=== PATIENT | male | born 1970 | race Two or more races ===

== ENCOUNTER 2019-11-15 09:58 | Inpatient (IN) | payer MEDICAID ==
[~2019-11-15] VITALS: Ht 157.5 cm; Wt 70.3 kg
--- NOTE | 2019-11-15 10:05 | NUR ---
LEFT SIDED CP X 3 DAYS. PATIENT A/OX4. BREATHING EVEN AND UNLABORED, NO SOB NOTED. NEEDS ATTENDED. ATTACHED TO THE LOCOMOTIVE ENGINEER DIESEL.
[2019-11-15 10:33] LABS: BASOPHILS % (AUTO) 0.4 % (0.0-2.0); EOSINOPHILS % (AUTO) 0.1 % (0.0-6.0); HEMATOCRIT 49 % (39-51); HEMOGLOBIN 16.6 g/dL (13.5-17.5); LYMPHOCYTES # (AUTO) 1.2 /CMM (0.8-4.8); LYMPHOCYTES % (AUTO) 11.6 % (20.0-44.0); MEAN CORPUSCULAR HGB CONC 34 g/dl (31.0-36.0); MEAN CORPUSCULAR VOLUME 97 fL (80-96); MONOCYTES # (AUTO) 1.1 /CMM (0.1-1.30); NEUTROPHILS # (AUTO) 8.4 /CMM (1.8-8.9); NEUTROPHILS % (AUTO) 77.9 % (43.0-81.0); PLATELET COUNT (AUTO) 205 /CMM (150-450); RED BLOOD CELL COUNT(AUTO) 5.07 MIL/uL (4.5-6.0); WHITE BLOOD COUNT (AUTO) 10.8 K/uL (4.3-11.0)
[2019-11-15 10:43] LABS: CARBON DIOXIDE 25 mmol/L (21-32); CHLORIDE 106 mmol/L (98-107); GLUCOSE 115 mg/dL (74-106); SODIUM SERUM 142 mmol/L (136-145); UREA NITROGEN, BLOOD 20 mg/dL (7-18)
[2019-11-15 10:56] LABS: B-TYPE NATRIURETIC PEPTIDE 40 PG/ML (0-125)
--- NOTE | 2019-11-15 11:45 | NUR ---
CALLED FOR TELE BED & TURNED IN MOVE SHEET TO ADMITTING.
--- NOTE | 2019-11-15 12:18 | NUR ---
115-2 TELE. PRIMARY NURSE AWARE.
[2019-11-15] MEDS ORDERED: ACETAMINOPHEN 325 MG TABLET PO PRN (12:30)
[2019-11-15] MEDS ORDERED: Z GUARD REMEDY 2 OZ OINT TP PRN (12:30)
[2019-11-15] MEDS ORDERED: MAGNESIUM HYDROXIDE 30 ML UDC PO PRN (12:30)
[2019-11-15] MEDS ORDERED: MAG HYDROX/AL HYDROX/SIMETH 30 ML UDC PO PRN (12:30)
[2019-11-15] MEDS ORDERED: HYDROCODONE/APAP 5/325MG 1 EACH TABLET PO PRN (12:30)
[2019-11-15] MEDS ORDERED: ONDANSETRON HCL/PF 4 MG/2 ML VIAL IVP PRN (12:30)
--- NOTE | 2019-11-15 13:08 | NUR ---
REPORT GIVEN TO FANG VAUGHN.
--- NOTE | 2019-11-15 13:26 | NUR ---
PATIENT TRANSFERRED TO ROOM 115-2 VIA ACLS PROTOCOL. PATIENT IN STABLE CONDITION, AMBULATORY WITH STEADY GAIT. NO DISTRESS NOTED. ENDORSED TO FANG VAUGHN.
[2019-11-15 13:45] VITALS: BP 118/72
[2019-11-15] MEDS: IV NS 0.9% 1,000 ML IV PRN (14:29)
--- NOTE | 2019-11-15 15:00 | NUR ---
RN NOTES RECEIVED HANDOFF REPORT FROM FANG FOR CONTINUITY OF CARE.
--- NOTE | 2019-11-15 15:00 | NUR ---
rn note at 1345 pt came from er vs, sr 86 on electronic device monitor, sweating co chest pain and left arm 5/10, a little nausea. iv in left ac 18 g, intact, norco offered, but later refused. no aspirin given in ER followed up with MD regarding aspirin and will administer today. call light within reach. care endorsed to RODERICK Swift for KATHY.
[2019-11-15] MEDS: ASPIRIN 325 MG TABLET PO SCH (15:12)
[2019-11-15 16:00] VITALS: BP 120/76
[2019-11-15] MEDS: METOPROLOL TARTRATE 50 MG TABLET PO SCH (17:38)
--- NOTE | 2019-11-15 19:02 | NUR ---
RN CLOSING NOTES PATIENT IS RESTING COMFORTABLY IN BED, NO S/SX OF RESP DISTRESS OR SOB. PT STATES CHEST PAIN HAS IMPROVED. CHEST RISES AND FALLS EVENLY. DENIES ANY DISCOMFORT AT THIS TIME . PT NEEDS HAVE BEEN MET, VITAL SIGNS ARE STABLE, NO ACUTE CHANGES OCCURRED THROUGHOUT THE SHIFT. RESEARCH COMPUTING SPECIALIST IS AT BEDSIDE. SAFETY MEASURES HAVE BEEN IMPLEMENTED, CALL LIGHT IS WITHIN REACH, BED IS IN LOWEST AND LOCKED POSITION, SIDE RAILS UP X2, WILL ENDORSE TO NIGHTSHIFT RN FOR CONTINUITY OF CARE.
[2019-11-15 20:00] VITALS: BP 103/63
--- NOTE | 2019-11-15 20:00 | NUR ---
AIRCRAFT TIME CLERK NOTES RECEIVED PATIENT AWAKE IN BED WITH NO DISTRESS NOTED. CALL LIGHT WITHIN REACH. NO C/O PAIN OR DISCOMFORT. PERIPHERAL LINE INTACT AND PATENT. ENCOURAGED USE OF CALL LIGHT FOR ASSISTANCE AND VERBALIZED GOOD UNDERSTANDING. BED IN LOW LOCK SETTING WITH BED ALARM ON AND FUNCTIONING PROPERLY. ROOM FREE OF CLUTTER AND BELONGINGS KEPT NEAR BEDSIDE. WILL CONTINUE TO MONITOR.
[2019-11-16] MEDS: IV NS 0.9% 1,000 ML IV PRN (03:54)
[2019-11-16 04:00] VITALS: BP 100/60
[2019-11-16] MEDS: METOPROLOL TARTRATE 50 MG TABLET PO SCH ×4 (05:28→17:30)
--- NOTE | 2019-11-16 06:31 | NUR ---
LEASE OPERATOR NOTES PATIENT ASLEEP IN BED WITH NO DISTRESS NOTED. CALL LIGHT WITHIN REACH. PERIPHERAL LINE INTACT AND PATENT. BED IN LOW LOCK SETTING WITH BED ALARM ON AND FUNCTIONING PROPERLY. ROOM FREE OF CLUTTER AND BELONGINGS KEPT NEAR BEDSIDE. WILL ENDORSE TO ONCOMING SHIFT.
[2019-11-16 07:19] LABS: BASOPHILS % (AUTO) 0.5 % (0.0-2.0); EOSINOPHILS % (AUTO) 1.5 % (0.0-6.0); HEMATOCRIT 42 % (39-51); HEMOGLOBIN 14.3 g/dL (13.5-17.5); LYMPHOCYTES # (AUTO) 2.5 /CMM (0.8-4.8); LYMPHOCYTES % (AUTO) 37.4 % (20.0-44.0); MEAN CORPUSCULAR HGB CONC 34 g/dl (31.0-36.0); MEAN CORPUSCULAR VOLUME 97 fL (80-96); MONOCYTES # (AUTO) 0.8 /CMM (0.1-1.30); MONOCYTES % (AUTO) 12.9 % (2.0-12.0); NEUTROPHILS # (AUTO) 3.1 /CMM (1.8-8.9); NEUTROPHILS % (AUTO) 47.7 % (43.0-81.0); PLATELET COUNT (AUTO) 174 /CMM (150-450); RED BLOOD CELL COUNT(AUTO) 4.31 MIL/uL (4.5-6.0); WHITE BLOOD COUNT (AUTO) 6.6 K/uL (4.3-11.0)
[2019-11-16 07:33] LABS: CALCIUM, SERUM 8.2 mg/dL (8.5-10.1); CREATININE 0.7 mg/dL (0.6-1.3); PHOSPHORUS 2.8 mg/dL (2.5-4.9); POTASSIUM 3.8 mmol/L (3.5-5.1)
[2019-11-16 08:00] VITALS: BP 100/49
[2019-11-16] MEDS: ASPIRIN 325 MG TABLET PO SCH (08:52)
[2019-11-16] MEDS ORDERED: ASPIRIN 325 MG TABLET PO SCH (09:00)
[2019-11-16 12:00] VITALS: BP 104/65
[2019-11-16] MEDS ORDERED: NITROGLYCERIN 4.9 GM SPRAY SL PRN (13:30)
[2019-11-16] MEDS ORDERED: METOPROLOL TARTRATE INJ 5 MG/5 ML AMPUL IVP PRN (13:30)
[2019-11-16] MEDS ORDERED: IOHEXOL-350 100 ML VIAL IV ONE (13:37)
[2019-11-16] MEDS ORDERED: IV NS 0.9% 250 ML IV ONE (13:37)
[2019-11-16 16:00] VITALS: BP_SYST 129; BP_DIAS 70; BP_DIAS 76
[2019-11-16 17:30] VITALS: BP 129/76
--- NOTE | 2019-11-16 18:30 | NUR ---
RN CLOSING NOTE CTA WAS NEGATIVE. MD NOTIFIED. PATIENT DISCHARGED HOME. PAPERWORK COMPLETED AND SIGNED,. ID AND IV SITE REMOVED. PATIENT STATES HE HAS HIS OWN TRANSPORTATION.
== END 2019-11-16 18:30 | disposition home or self-care (01) | DRG 723 ==
LOC: ER 10:04 → TELE1 12:25 → MEDSG1 11-16 12:14
PROVIDERS: ADMIT Internal Medicine; ATTEND Internal Medicine
DX: B34.9 Viral infection, unspecified (principal); N17.0 Acute kidney failure with tubular necrosis; R07.89 Other chest pain; I10 Essential (primary) hypertension; Z87.01 Personal history of pneumonia (recurrent); R00.2 Palpitations; E78.00 Pure hypercholesterolemia, unspecified
CPT/HCPCS: 36415; 71045-TC; 75574; 80048-TC; 80061-TC; 83735-TC; 83880; 84100-TC; 84484-TC; 85025-TC; 87081-TC; 93307-TC; G0378; J2405; J7030; J7050; Q9967

== ENCOUNTER 2020-01-20 00:44 | Inpatient (IN) | payer MEDICAID ==
[~2020-01-20] VITALS: Ht 157.5 cm; Wt 72.6 kg
--- NOTE | 2020-01-20 00:55 | NUR ---
PT BIBS FOR C/O WORSENING ABD PAIN FOR THE PAST 3-4 MONTHS. +N/V/D X 2 DAYS. PT AAOX4, VSS, RR EVEN AND UNLABORED ON RA W/ NAD NOTED. PT CONNECTED TO THE COMMUNITY PLANNING TECHNICIAN AND POX.
[2020-01-20] MEDS ORDERED: MORPHINE SULFATE INJ 2 MG/ML DISP.SYRIN IV ONE (01:00)
[2020-01-20] MEDS ORDERED: ONDANSETRON HCL/PF 4 MG/2 ML VIAL IVP ONE (01:00)
[2020-01-20] MEDS ORDERED: IV NS 0.9% 1,000 ML BAG IV ONE (01:00)
--- NOTE | 2020-01-20 01:00 | NUR ---
BLOOD DRAWN AND SENT TO LAB
[2020-01-20] MEDS ORDERED: MORPHINE SULFATE INJ 4 MG/ML DISP.SYRIN ONE (01:03)
[2020-01-20] MEDS ORDERED: ONDANSETRON HCL/PF 4 MG/2 ML VIAL ONE (01:03)
[2020-01-20 01:14] LABS: BASOPHILS % (AUTO) 0.3 % (0.0-2.0); HEMATOCRIT 49 % (39-51); HEMOGLOBIN 16.6 g/dL (13.5-17.5); LYMPHOCYTES # (AUTO) 0.5 /CMM (0.8-4.8); LYMPHOCYTES % (AUTO) 5.3 % (20.0-44.0); MEAN CORPUSCULAR HGB CONC 34 g/dl (31.0-36.0); MEAN CORPUSCULAR VOLUME 96 fL (80-96); MONOCYTES # (AUTO) 0.3 /CMM (0.1-1.30); MONOCYTES % (AUTO) 3.8 % (2.0-12.0); NEUTROPHILS # (AUTO) 8.1 /CMM (1.8-8.9); NEUTROPHILS % (AUTO) 90.6 % (43.0-81.0); PLATELET COUNT (AUTO) 206 /CMM (150-450); RED BLOOD CELL COUNT(AUTO) 5.08 MIL/uL (4.5-6.0); WHITE BLOOD COUNT (AUTO) 8.9 K/uL (4.3-11.0)
[2020-01-20 01:21] LABS: CALCIUM, SERUM 8.9 mg/dL (8.5-10.1); CREATININE 0.8 mg/dL (0.6-1.3); POTASSIUM 3.5 mmol/L (3.5-5.1)
[2020-01-20 01:27] LABS: ALBUMIN 4.4 g/dL (3.4-5.0); BILIRUBIN,DIRECT 0.3 mg/dL (0.0-0.2); BILIRUBIN,TOTAL 1.1 mg/dL (0.2-1.0); TOTAL PROTEIN, SERUM 8.2 g/dL (6.4-8.2)
--- NOTE | 2020-01-20 01:32 | NUR ---
PT WAS PICKED UP FOR CT
--- NOTE | 2020-01-20 02:00 | NUR ---
PT BACK FROM CT
--- NOTE | 2020-01-20 05:05 | NUR ---
ER TALKING TO KENA LANDEROS DNP REGARDING PT ADMISSION.
--- NOTE | 2020-01-20 05:11 | NUR ---
ER SPOKE TO DR LISA REGARDING PT ADMISSION.
--- NOTE | 2020-01-20 05:13 | NUR ---
med surg bed: 208-2
--- NOTE | 2020-01-20 05:26 | NUR ---
REPORT GIVEN TO RODERICK LY
[2020-01-20] MEDS ORDERED: MORPHINE SULFATE INJ 2 MG/ML DISP.SYRIN IV PRN (05:30)
[2020-01-20] MEDS ORDERED: ONDANSETRON HCL/PF 4 MG/2 ML VIAL IVP PRN (05:30)
[2020-01-20] MEDS ORDERED: ACETAMINOPHEN 650 MG/SUPP.RECT RC PRN (05:30)
[2020-01-20] MEDS ORDERED: Z GUARD REMEDY 2 OZ OINT TP PRN (05:30)
--- NOTE | 2020-01-20 06:00 | NUR ---
RN chantal admission notes Received Pt from ER nurse. Pt is arrived at the unit with a wheelchair. Pt is alert and orientedX4. 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 Pt is able to ambulate with a steady gait. Respiration is normal in room air. No SOB. No S/S of distress noted. IV sites at RAC# 20 is clean, intact, patent, flush without resistance, and SL. Oriented Pt to the room and the use of call light. VS is stable. Admission order received from Dr. Hugo. Safety precautions is maintained. Bed at low position, brakes locked, side rails upX2 and call light is within reach . Will continue to monitor.
[2020-01-20 06:10] VITALS: BP 127/78
--- NOTE | 2020-01-20 06:10 | NUR ---
PT TRANSFERRED TO ROOM IN STABLE CONDITION
--- NOTE | 2020-01-20 06:40 | NUR ---
RN chirssurvalentino notes Inserted NG tube 16 fr on left nare with stomach content noted upon insertion. Pt tolerated activity well. Ordered chest x-ray stat to verify placement. Will continue to monitor.
--- NOTE | 2020-01-20 07:30 | NUR ---
RN medsurg closing notes Pt is resting in bed comfortably. Pt is alert and orientedX4. Respiration is normal. No SOB. No S/S of distress noted. NG tube on left nare is in placed. IV sites at RAC# 20 is clean, intact, patent and SL. Safety precautions is maintained. Bed at low position, brakes locked, side rails upX2 and call light is within reach. Will endorse to morning nurse for KATHY.
--- NOTE | 2020-01-20 08:00 | NUR ---
MS RN OPENING NOTES Received Patient awake and resting in bed. A/O x 4. VS stable with no acute distress. Breathing even and unlabored on room air with no respiratory distress. Denies pain. 20g PIV on RAC clean, intact, patent and flushing well. NG Tube in place and patent. Safety precautions in place. Bed locked and set to lowest position with side rails x 2 up. All needs rendered at this time. Call light within reach. Will continue to monitor.
[2020-01-20 08:10] VITALS: BP 121/76
[2020-01-20] MEDS: PANTOPRAZOLE 40 MG VIAL IV SCH (08:59)
[2020-01-20] MEDS: IV NS 0.9% 1,000 ML IV PRN (11:50)
[2020-01-20] MEDS ORDERED: [UNRECOGNIZED DRUG - OTHER] PO (14:37)
[2020-01-20 16:43] VITALS: BP 120/70
--- NOTE | 2020-01-20 18:37 | NUR ---
MS RN NOTES Obtained consent for Endoscopy, Blood Transfusion and General Anesthesia at this time. Explained risks and benefits. Patient agreed. Placed signed consents in chart. Patient in stable condition. Will continue to monitor.
--- NOTE | 2020-01-20 19:23 | NUR ---
MS RN CLOSING NOTES Patient awake and watching TV in bed. A/O x 4. VS stable with no acute distress. Breathing even and unlabored on room air with no respiratory distress. Denies pain. 20g PIV on RAC clean, intact, patent and flushing well with NS infusing at 75ml/hr. NG Tube in place and patent. Safety precautions in place. Bed locked and set to lowest position with side rails x 2 up. All needs rendered at this time. Call light within reach. Will endorse plan of care to oncoming shift.
--- NOTE | 2020-01-20 20:29 | NUR ---
MS RN NOTES RECEIVED PATIENT AWAKE IN BED WITH NO DISTRESS NOTED. CALL LIGHT WITHIN REACH. LEFT NARE NGT INTACT AND PATENT, CONNECTED TO LOW INTERMITTENT SUCTION. NO C/O PAIN OR DISCOMFORT. PERIPHERAL LINE INTACT AND PATENT. ENCOURAGED USE OF CALL LIGHT FOR ASSISTANCE AND VERBALIZED GOOD UNDERSTANDING. ROOM FREE OF CLUTTER AND BELONGINGS KEPT NEAR BEDSIDE. BED IN LOW LOCK SETTING. WILL CONTINUE TO MONITOR
[2020-01-20 20:37] VITALS: BP 130/73
[2020-01-21] VITALS (10 sets, daily range): BP systolic 104–127; BP diastolic 61–78
[2020-01-21] MEDS: IV NS 0.9% 1,000 ML IV PRN (01:55)
--- NOTE | 2020-01-21 02:05 | NUR ---
PATIENT PULLED OUT LEFT NARE NGT. PATIENT STATED IT WAS TOO UNCOMFORTABLE. REFUSES REINSERTION DESPITE CONTINUED ENCOURAGEMENT AND EXPLANATIONS OF RISKS/BENEFITS. DR. MARTIN MADE AWARE WITH NO NEW ORDERS. NO EPISODES OF NV. WILL CONTINUE TO MONITOR.
[2020-01-21 06:30] LABS: BASOPHILS % (AUTO) 0.1 % (0.0-2.0); EOSINOPHILS % (AUTO) 0.1 % (0.0-6.0); HEMATOCRIT 44 % (39-51); HEMOGLOBIN 14.6 g/dL (13.5-17.5); LYMPHOCYTES # (AUTO) 0.9 /CMM (0.8-4.8); LYMPHOCYTES % (AUTO) 11.2 % (20.0-44.0); MEAN CORPUSCULAR HGB CONC 34 g/dl (31.0-36.0); MEAN CORPUSCULAR VOLUME 97 fL (80-96); MONOCYTES # (AUTO) 0.8 /CMM (0.1-1.30); MONOCYTES % (AUTO) 10.5 % (2.0-12.0); NEUTROPHILS % (AUTO) 78.1 % (43.0-81.0); PLATELET COUNT (AUTO) 188 /CMM (150-450); RED BLOOD CELL COUNT(AUTO) 4.51 MIL/uL (4.5-6.0); WHITE BLOOD COUNT (AUTO) 7.7 K/uL (4.3-11.0)
--- NOTE | 2020-01-21 06:44 | NUR ---
MS RN NOTES PATIENT ASLEEP IN BED WITH NO DISTRESS NOTED. CALL LIGHT WITHIN REACH. NPO STATUS OBSERVED AND MAINTAINED. NO EPISODES OF NV. PERIPHERAL LINE INTACT AND PATENT. BED IN LOW LOCK SETTING. ROOM FREE OF CLUTTER AND BELONGINGS KEPT NEAR BEDSIDE. WILL ENDORSE TO ONCOMING SHIFT.
[2020-01-21 07:10] LABS: CALCIUM, SERUM 7.9 mg/dL (8.5-10.1); CREATININE 0.7 mg/dL (0.6-1.3); POTASSIUM 3.4 mmol/L (3.5-5.1)
[2020-01-21 07:11] LABS: ALBUMIN 3.3 g/dL (3.4-5.0); BILIRUBIN,TOTAL 0.6 mg/dL (0.2-1.0); MAGNESIUM 2.2 mg/dL (1.8-2.4); PHOSPHORUS 2.7 mg/dL (2.5-4.9)
[2020-01-21 07:15] LABS: THYROID STIMULATING HORMONE 1.202 uIU/mL (0.358-3.74)
[2020-01-21] MEDS ORDERED: ANESTHESIA TRAY IN PYXIS 1 EA TRAY MC ONE (07:15)
--- NOTE | 2020-01-21 07:15 | NUR ---
MS RN NOTES RECEIVED PATIENT OFF UNIT, IN OR FOR EGD
[2020-01-21] MEDS ORDERED: FENTANYL PF 100MCG/2ML AMPUL ONE (07:27)
[2020-01-21] MEDS ORDERED: POTASSIUM CHLORIDE 20 MEQ TAB.PRT.SR PO SCH (09:30)
--- NOTE | 2020-01-21 09:30 | NUR ---
MS RODERICK MIRANDA RECEIVED PATIENT FROM OR, REPORT GIVEN BY POLICE JUDGE NURSE HOLLY. PATIENT ALERT, AWAKE AND ORIENTED X4. NO SOB. DENIES ANY C/O PAIN NOR DISCOMFORT AT THIS TIME. DENIES ANY C/O N/V. RESTING COMFORTABLY IN BED. DRANK WATER, JUICE AND ATE JELLO WITHOUT S/S OF COMPLICATIONS. BED IN LOWEST POSITION, LOCKED. BED SIDERAILS UPX2. CALL LIGHT WITHIN REACH.
[2020-01-21] MEDS: PANTOPRAZOLE 40 MG VIAL IV SCH (09:48)
[2020-01-21] MEDS: POTASSIUM CL. PREMIX PERIPHER. 50 ML IV SCH ×2 (09:49→11:01)
--- NOTE | 2020-01-21 12:25 | NUR ---
MS RN NOTES PATIENT DANISHA CLEAR LIQUID WELL WITHOUT S/S OF COMPLICATIONS. PATIENT STILL HUNGRY, DIET UPGRADED TO REGULAR DIET.
[2020-01-21] MEDS ORDERED: METOCLOPRAMIDE HCL 10 MG/2 ML VIAL IV SCH (14:30)
[2020-01-21] MEDS ORDERED: OMEP20TA20 PO (17:09)
--- NOTE | 2020-01-21 18:03 | NUR ---
MS RN NOTES ALERT AND ORIENTED X4. NO S/S OF RESPIRATORY DISTRESS. DENIES ANY C/O PAIN NOR DISCOMFORT AT THIS TIME. DENIES ANY C/O N/V. DANISHA REGULAR DIET WELL WITHOUT DISCOMFORT AND WITHOUT S/S OF COMPLICATIONS. IV ACCESS REMOVED WITH CATHETER TIP INTACT WITH GAUZE DRESSING IN PLACE. DISCHARGE INSTRUCTIONS EXPLAINED AND PACKET GIVEN. ALL BELONGINGS ACCOUNTED FOR. LEFT IN STABLE CONDITION VIA PRIVATE VEHICLE.
== END 2020-01-21 18:00 | disposition home or self-care (01) | DRG 241 ==
LOC: ER 00:46 → MEDSG2 05:15
PROVIDERS: ADMIT Internal Medicine; ATTEND Internal Medicine
PROC: 0DB68ZX Excision of Stomach, Via Natural or Artificial Opening Endoscopic, Diagnostic (ICD-10-PCS; principal; 2020-01-21)
PROC: 0DB98ZX Excision of Duodenum, Via Natural or Artificial Opening Endoscopic, Diagnostic (ICD-10-PCS; principal; 2020-01-21)
DX: K29.80 Duodenitis without bleeding (principal); K76.0 Fatty (change of) liver, not elsewhere classified; K31.84 Gastroparesis; E78.00 Pure hypercholesterolemia, unspecified; I10 Essential (primary) hypertension; K29.70 Gastritis, unspecified, without bleeding; K57.30 Diverticulosis of large intestine without perforation or abscess without bleeding
CPT/HCPCS: 36415; 71045-TC; 80048-TC; 80053-TC; 80061-TC; 80076-TC; 83690-TC; 83735-TC; 84100-TC; 84443-TC; 85025-TC; 87081-TC; 88305-TC; 88313-TC; 88342; C9113; G0378; J2270; J2405; J2765; J3010; J3480; J7030

== ENCOUNTER 2024-11-26 19:05 | Emergency (ER) | payer MEDICAID ==
[~2024-11-26] VITALS: Ht 152.4 cm; Wt 72.6 kg
[~2024-11-26 19:05] MED LIST: OMEP20TA20 PO; [UNRECOGNIZED DRUG - OTHER] PO
[2024-11-26 20:34] VITALS: BP 152/77; TEMP 98.1; O2SAT 98
== END 2024-11-26 21:07 | disposition left against medical advice (07) ==
LOC: ER 19:11
DX: J11.1 Influenza due to unidentified influenza virus with other respiratory manifestations (principal); Z53.21 Procedure and treatment not carried out due to patient leaving prior to being seen by health care provider